=== PATIENT | female | born 1955 | race Hispanic/Latino ===

== ENCOUNTER 2020-01-14 13:39 | Emergency (ER) | payer SELFPAY ==
[~2020-01-14] VITALS: Ht 167.6 cm; Wt 95.3 kg
[~2020-01-14 13:39] MED LIST: AMLODIPINE BESYL5 MG PO; CETIRIZINE HCL10 MG PO; CITALOPRAM HBR20 MG PO; DEXILANT30 MG PO; DIFLUNISAL500 MG PO; LOSARTAN POTAS100 MG PO; METFORMIN HCL500 MG PO; MIRAPEX0.125 MG PO; NASONEX17 GM; SYMBICORT 16010.2 GM INH; TOPROL XL25 MG PO; TOPROL XL50 MG PO; VALIUM5 MG PO
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
--- OUTSIDE RECORDS SUMMARY | 2020-01-15 09:08 | XMS REPORT | Clinical Summary ---
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 Stated that she "gets asthma." [place] 03/05/2018 Medications End Date Status Medication Sig Dispensed Refills Start Date Active amLODIPine (NORVASC) 5 mg Take 5 mg by 0 tablet mouth every morning. Active cetirizine (ZyrTEC) 10 MG Take 10 mg by 0 tablet mouth every morning. Active glimepiride (AMARYL) 4 MG Take 4 mg by 0 tablet mouth every morning. Active levothyroxine (SYNTHROID, Take 25 mcg 0 LEVOXYL) 25 mcg tablet by mouth every morning. Active losartan (COZAAR) 100 MG Take 100 mg 0 tablet by mouth every morning. Active metFORMIN (GLUCOPHAGE) Take 1,000 mg 0 500 mg tablet by mouth 2 (two) times a day. Active metoprolol succinate XL Take 50 mg by 0 (TOPROL-XL) 50 mg 24 hr mouth every tablet morning. Active oxybutynin (DITROPAN) 5 Take 5 mg by 0 MG tablet mouth 3 (three) times a day. Active sertraline (ZOLOFT) 100 Take 100 mg 0 MG tablet by mouth nightly. Active pramipexole (MIRAPEX) Take 0.125 mg 0 0.125 MG tablet by mouth nightly. Active albuterol (ACCUNEB) 2.5 Take 2.5 mg 0 mg /3 mL (0.083 %) by nebulizer solution nebulization daily as needed for wheezing or shortness of breath. Active dexlansoprazole Take 30 mg by 0 (DEXILANT) 30 mg capsule mouth every morning. Active hydrOXYzine (ATARAX) 50 Take 50 mg by 0 MG tablet mouth nightly. Active fluticasone-vilanterol Inhale 1 30 each 0 (BREO ELLIPTA) 100-25 inhalations 8 mcg/dose blister with once daily device powder for for 30 days. inhalation Active Problems Problem Noted Date Chest pain 03/05/2018 Social History Date Tobacco Use Types Packs/Day Years Used Never Smoker Smokeless Tobacco: Never Used Drinks/Week oz/Week Comments Alcohol Use No Sex Assigned at Date Recorded Not on file Industry Job Start Date Occupation Not on file Not on file Not on file Travel End Travel History Travel Start No recent travel history available. 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
--- OUTSIDE RECORDS SUMMARY | 2020-01-15 09:08 | XMS REPORT | Clinical Summary ---
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 with hemoglobin A1c goal of less than 7.0% 06/26/2019 Refill [facility] Joshua Wray MD Hemorrhoids, unspecified hemorrhoid type (Primary Dx); Essential hypertension; Gastroesophageal reflux disease without esophagitis; Urge incontinence of urine; Generalized anxiety disorder; Depressive disorder; Sleep apnea, unspecified type; Leg cramping; Need for influenza vaccination 06/25/2019 Office Visit [facility] Marcelo Ramirez Jr., MD Uncontrolled type 2 diabetes mellitus wi thout complication, without long-term current use of insulin 06/25/2019 Refill [facility] Marcelo Ramirez Jr., MD Type 2 diabetes mellitus with hemoglobin A1c goal of less than 7.0% 06/25/2019 Refill [facility] Homero Arthur MD Intermittent asthma without complication , unspecified asthma severity 06/25/2019 Refill [facility] Christal Harris, RN 06/23/2019 Nurse Triage Reyes Rosenbaum DDS Encounter for screening for dental disor deng (Primary Dx) 06/09/2019 Office Visit Oral Surgery Marcelo Ramirez Jr., MD Allergic rhinitis, unspecified seasonali ty, unspecified trigger (Primary Dx); Encounter for screening for dental disorder 06/06/2019 Office Visit [facility] Marcelo Ramirez Jr., MD Type 2 diabetes mellitus with hemoglobin A1c goal of less than 7.0% (Primary Dx); Essential hypertension; Gastroesophageal reflux disease without esophagitis; Non-seasonal allergic rhinitis due to fungal spores; Generalized anxiety disorder; Depressive disorder; Hypothyroidism, unspecified type; Leg cramping; Encounter for diabetic foot exam; Tinnitus of both ears 05/29/2019 Office Visit [facility] Marcelo Ramirez Jr., MD Tinnitus of both ears 05/29/2019 Orders Only [facility] Joe Schwarz, MARCELINO 05/29/2019 Patient Patient Education Education Marcelo Ramirez Jr., MD Type 2 diabetes mellitus with hemoglobin A1c goal of less than 7.0% 05/29/2019 Refill [facility] Edward Tucker DDS [place], Phillip A, DDS Encounter for screening for dental disor deng (Primary Dx) 05/28/2019 Office Visit Oral Surgery Rocky Sneed, [facility] 05/28/2019 Clinical Pharmacy Marcelo Ramirez Jr., MD Essential hypertension 05/27/2019 Refill [facility] Edward Tucker DDS Encounter for screening for dental disor deng (Primary Dx) 05/23/2019 Office Visit Oral Surgery Edward Tucker DDS Encounter for screening for dental disor deng 05/23/2019 Office Visit Oral Surgery Edward Tucker DDS Encounter for screening for dental disor deng (Primary Dx) 05/23/2019 Orders Only Oral Surgery Marcelo Ramirez Jr., MD Varicose veins of both lower extremities , unspecified whether complicated (Primary Dx); Essential hypertension; Urge incontinence of urine; Uncontrolled type 2 diabetes mellitus without complication, without long-term current use of insulin; Hypothyroidism, unspecified type; Sleep apnea, unspecified type; Generalized anxiety disorder; Depressive disorder; Non-seasonal allergic rhinitis due to fungal spores; Gastroesophageal reflux disease without esophagitis; Weakness; Encounter for diabetes type 2 eye exam; Rash and other nonspecific skin eruption 04/03/2019 Office Visit [facility] Homero Arthur MD Intermittent asthma without complication , unspecified asthma severity 04/03/2019 Refill [facility] Reina Cabezas DDS Pain due to dental caries (Primary Dx); Chronic periodontitis; Tooth pain 03/27/2019 Office Visit Dentistry Homero Arthur MD Sleep apnea, unspecified type; Non-seasonal allergic rhinitis due to fungal spores 03/06/2019 Refill [facility] Marcelo Ramirez Jr., MD Essential hypertension 03/06/2019 Refill [facility] Homero Arthur MD Essential hypertension 01/29/2019 Refill [facility] Marcelo Ramirez Jr., MD Gastroesophageal reflux disease without esophagitis 01/27/2019 Refill [facility] Homero Arthur MD Essential hypertension 01/20/2019 Refill Family Practice after 01/13/2019 Immunizations Name Administration Dates Next Due Albuterol 0.083% (3ml) 07/20/2010 Influenza Vaccine 06/28/2016, 09/20/2015, (Deferred: Patient Refused), 06/23/2013 (Deferred: Patient Refused), 09/07/2011, 07/04/2010 (Defer red: Unavailable-Patient to return for vacci ne later) Influenza, 06/25/2019, 09/10/2018 Vaccine<FLUCELVAX>(Multi- Dose) Ipratropium 0.02t (2.5ml) 07/20/2010 Pneumoccoccal 09/07/2011 Pneumococcal 13-valent 12/04/2016 conj 0.5 mL injection Tdap Tetanus, diphtheria, 09/07/2011 acellular pertussis Vaccine Triamcinolone 40mg/ml Inj 11/24/2008, 11/19/2007 Family History Medical History Relation Name Comments Sickle Cell Daughter Cancer Father Asthma Grandchild Arthritis Mother Cancer Mother UTERUS Heart Mother Diabetes Sister Hypertension Sister Sickle Cell Sister Relation Name Status Comments Daughter Father cancer (Age 72) Grandchild Mother Alive Sister Sister Sister Social History Date Tobacco Use Types Packs/Day Years Used Never Smoker Smokeless Tobacco: Never Used Tobacco Cessation: Counseling Given: No Drinks/Week oz/Week Comments Alcohol Use No Food Insecurity Answer Date Recorded Within the past 12 months, you worried that your Sometimes true 04/02/2018 food would run out before you got money to buy more. Within the past 12 months, the food you bought Sometimes t rue 04/02/2018 just didn't last and you didn't have mo mery to get more. Sex Assigned at Date Recorded Not on file Industry Job Start Date Occupation Not on file Not on file Not on file Travel End Travel History Travel Start No recent travel history available. Date Recorded COVID-19 Exposure Response 01/09/2020 1:10 PM CDT In the last month, have you been in contact with No / Unsure someone who was confirmed or suspected to have Coronavirus / COVID-19? Last Filed Vital Signs Reading Time Taken Comments Vital Sign 122/68 01/09/2020 1:19 PM CDT Blood Pressure 98 01/09/2020 1:19 PM CDT Pulse 37.8 C (100 F) 01/09/2020 1:19 PM CDT Temperature 18 01/09/2020 1:19 PM CDT Respiratory Rate 100% 12/06/2019 11:50 AM CDT Oxygen Saturation - - Inhaled Oxygen Concentration 85.7 kg (189 lb) 01/09/2020 1:19 PM CDT Weight 165.1 cm (5' 5") 01/09/2020 1:19 PM CDT Height 31.45 01/09/2020 1:19 PM CDT Body Mass Index Plan of Treatment Care Team Description Date Type Specialty Marcelo Ramirez Jr., MD [address] [place] [address] [phone] 02/04/2020 Office Visit Dermatology referral#[id number]/FAP 02/26/2020 Office Visit Pulmonology Health Maintenance Due Date Last Done Comments DM Retinal Exam (Yearly) 04/03/2020 04/03/2019, 0 04/02/2018, 11/21/2016, Additional history exists DM Foot Exam (Yearly) 05/29/2020 05/29/2019, 02/24, 01/18/2017, Additional history exists DM Microalbumin Urine 08/25/2020 08/25/2019, 08/27, 11/21/2016, Scrn (Yearly) Additional history exists DM HGBA1C (Yearly) 09/04/2020 09/04/2019, 019, 09/25/2018, Additional history exists Breast Cancer Scrn 09/30/2020 09/30/2019, 019, 06/27/2017, (Yearly) Additional history exists Colonoscopy 5yr 01/09/2022 01/09/2017 Goals Goal Patient Associated Recent Progress Patient-Stat Aut hor Goal Type Problems ed? Weight < 200 lb (90.719 kg) Weight 85.7 kg (189 lb) No Jerson, (01/09/2020 1:19 PM MD Homero CDT) Note: Exercise to loss weight and improve life style Weight (lb) < 200 lb (90.7 kg) Weight 85.7 kg (189 lb) No Schofield, (01/09/2020 1:19 PM Caterina Farmer CDT) Procedures Comments Procedure Name Priority Date/Time Associated Diag nosis URINE CULTURE Routine 12/06/2019 Urinary tract i nfection 12:15 PM CDT with hematuria, site unspecified POC URINE DIPSTICK, Routine 12/06/2019 Fever, uns pecified WITHOUT MICRO 12:08 PM CDT Suprapubic abdomina l pain MAMMOGRAM BILAT SCREEN Routine 09/30/2019 Breast cancer screening DIGITAL 10:42 AM PROFESSOR OF RELIGION XRAY ANKLE 3 VIEW MIN Routine 09/30/2019 Sprain o f left ankle, 9:49 AM PROF[employer]OR [employer] RELIGION unspecified ligament, subsequent encounter BASIC METABOLIC PANEL Routine 09/30/2019 Diabetes mellitus type 2 9:17 AM [employer]OR [employer] REL[employer]ION without retinopathy XRAY FOOT 3 VIEWS MIN Routine 09/04/2019 Left kavon t pain 10:07 AM [employer] REL[employer]ION XRAY HIP BILATERAL 2 Routine 09/04/2019 Pain of r ight hip joint VIEWS AND AP PELVIS 10:07 AM PROFESSOR OF RELIGION XRAY ELBOW 2 VIEWS MIN Routine 09/04/2019 Left el bow pain 10:07 AM [employer] REL[employer]ION HEMOGLOBIN A1C Routine 09/04/2019 Diabetes mellit us with 9:23 AM [employer]OR [employer] REL[employer]ION hemoglobin A1c goal of 7.0%-8.0% LIPID PROFILE Routine 09/04/2019 Preventative he alth care 9:23 AM PROF[employer]OR OF RELIGION SYPHILIS SCREEN FOR Routine 08/25/2019 Genital le kendal, female INFECTION 4:14 PM [employer]OR [employer] REL[employer] HSV 1 AND 2-SPECIFIC AB, Routine 08/25/2019 Genit al lesion, female IGG W/ REFLEX 4:14 PM [employer] REL[employer] HEPATITIS PANEL Routine 08/25/2019 Genital lesion , female 4:14 PM [employer] HIV-1/HIV-2 ROUTINE Routine 08/25/2019 Genital le kendal, female SCREENING 4:14 PM [employer] MICROALBUMIN / CREATININE Routine 08/25/2019 Neph ropathy screen URINE RATIO 4:14 PM [employer] REL[employer]ION TRICHOMONAS VAGINALIS Routine 08/13/2019 Genital warts 2:34 PM [employer]ION Screen for STD (sexually transmitted disease) CHLAM/GC DNA AMPLI Routine 08/13/2019 Genital war ts 2:34 PM [employer]OR [employer] REL[employer]ION Screen for STD (sexually transmitted disease) POC URINE DIPSTICK, Routine 08/13/2019 Burning wi th urination WITHOUT MICRO 2:19 PM [employer]OR OF RELIGION HEMOGLOBIN A1C Routine 05/29/2019 Type 2 diabetes mellitus 1:04 PM CDT with hemoglobin A1c goal of less than 7.0% DIABETIC FOOT EXAM Routine 05/29/2019 Encounter f or diabetic 11:58 AM CDT foot exam GLUCOSE POC Routine 05/28/2019 8:22 AM CDT OPHTHALMOLOGY RETINAL Routine 04/03/2019 Encounte r for diabetes SCAN 1:48 PM CDT type 2 eye exam FREE T4 Routine 04/03/2019 Weakness 12:36 PM CDT THYROID STIMULATING Routine 04/03/2019 Weakness HORMONE (TSH) 12:36 PM CDT IRON PROFILE Routine 04/03/2019 Weakness 12:36 PM CDT after 01/13/2019 Results * Urine Culture (12/06/2019 12:15 PM CDT) Urine Culture >100,000 CFU/mL Escherichia [facility] coli (A) [facility] Urine Culture Urogenital yennifer [facility] Specimen Urine - Clean Catch [place] Antibiotic Method Susceptibility Organism Amikacin SENSITIVITY <=4 ug/mL: Susceptible Escherichia coli Ampicillin SENSITIVITY >16 ug/mL: Resistant Escherichia coli Ampicillin-Sulbactam SENSITIVITY 16/8 ug/mL: Intermediate Escherichia coli Cefazolin SENSITIVITY 2 ug/mL: Susceptible Escherichia coli Cefepime SENSITIVITY <=0.5 ug/mL: Susceptible Escherichia coli Ceftazidime SENSITIVITY <=0.5 ug/mL: Susceptible Escherichia coli Ceftriaxone SENSITIVITY <=0.5 ug/mL: Susceptible Escherichia coli Ciprofloxacin SENSITIVITY <=0.5 ug/mL: Susceptible Escherichia coli Ertapenem SENSITIVITY <=0.125 ug/mL: Susceptible Escherichia coli Gentamicin SENSITIVITY <=1 ug/mL: Susceptible Escherichia coli Meropenem SENSITIVITY <=0.125 ug/mL: Susceptible Escherichia coli Nitrofurantoin SENSITIVITY <=16 ug/mL: Susceptible Escherichia coli Piperacillin-Tazobactam SENSITIVITY <=2/4 ug/mL: Susceptible Escherichia coli Tobramycin SENSITIVITY 1 ug/mL: Susceptible Escherichia coli Trimethoprim-Sulfamethoxazole SENSITIVITY <=0.5/9.5 ug/mL: Susceptible Escherichia coli Performing Organization Address City/State/Zipcode Ph one Number [facility] [address] [place] [address] [phone] * POC URINE DIPSTICK, WITHOUT MICRO (12/06/2019 12:08 PM CDT) Only the most recent of 2 results within the time period is included. Color POC yellow - - - Clarity POC clear - - - Spec [place] 1.010 1.005 - 1.030 POC pH POC 5.5 5.0 - 7.0 Protein POC 1+ Neg - Neg Glucose POC 3+ Neg - Neg Ketone POC neg Neg - Neg Bilirubin POC neg Neg - Neg Nitrate POC neg Neg - Neg Urobilinogen 0.2 0.2 - 1.0 EU/dL POC Leukocyte POC trace Neg - Neg Blood POC 3+ Neg - Neg Specimen Urine * MAMMOGRAM BILAT SCREEN DIGITAL (09/30/2019 10:42 AM PROFESSOR OF RELIGION) Specimen Impressions Performed At IMPRESSION: BENIGN SMS There is no mammographic evidence of ma lignancy. A 1 year screening mammogram is recommended. I have reviewed the study and agree wit h the findings in the report. This document has been electronically s igned. Zahida Page M.D. aar,ddn/penrad:09/30/2019 11:12:47 Shredder Tender [place]: Ms. Kaylyn meraz RT(R)(M), [facility] letter sent: Benign Exam Mammogram BI-RADS: 2 Benign G0202 z1 2.31 Narrative Performed At #[id number] - MAMMOGRAM BILAT SCREEN DIGITAL SMS BILATERAL DIGITAL SCREENING MAMMOGRAM W ITH CAD: 09/30/2019 CLINICAL: Screening for malignancy. Comparison is made to exams dated: , 06/26/2017, 07/24/2016, 09/21/2014 [facility], and 04/24/2013 [facility]. There are scattered fibroglandular [place] ents in both breasts that could obscure a lesion on mammography. Current study was also evaluated with a Computer Aided Detection (CAD) system. There are benign vascular calcification s and calcifications in both breasts. No significant masses, calcifications, or other findings are seen in either breast. There has been no significant interval change. Procedure Note Interface, Rad/Mammog In - 09/30/2019 12:29 PM PROFESSOR OF RELIGION #[id number] - MAMMOGRAM BILAT SCREEN DIGITAL BILATERAL DIGITAL SCREENING MAMMOGRAM WITH CAD: 09/30/2019 CLINICAL: Screening for malignancy. Comparison is made to exams dated: 09/25/2018, 06/26/2017, 07/24/2016, 09/21/2014 [facility], and 04/24/2013 [facility]. There are scattered fibroglandular elements in both breasts that could obscure a lesion on mammography. Current study was also evaluated with a Computer Aided Detection (CAD) system. There are benign vascular calcifications and calcifications in both breasts. No significant masses, calcifications, or other findings are seen in either breast. There has been no significant interval change. IMPRESSION IMPRESSION: BENIGN There is no mammographic evidence of malignancy. A 1 year screening mammogram is recommended. I have reviewed the study and agree with the findings in the report. This document has been electronically signed. Zahida farley,ddn/florentin:09/30/2019 11:12:47 [place]: Ms. Kaylyn Shields RT(R)(M), [facility] letter sent: Benign Exam Mammogram BI-RADS: 2 Benign G0202 z12.31 Performing Organization Address City/State/[facility] Ph one Number SMS * XRAY ANKLE 3 VIEW MIN (09/30/2019 9:49 AM PROFESSOR OF RELIGION) Specimen Impressions Performed At IMPRESSION: SMS 1. No acute radiographic abnormality. 2. Small calcaneus osteophyte on the plantar aspect, which may be related to focal pain. If the report is "FINALIZED" it indicat es that the attending/staff radiologist has reviewed the images and agrees with the resident's interpretation. Dictated By: Jeff Rivera MD, 09/30/2019 11 :13 AM I have reviewed the study and agree wit h the findings in this report. Signed By: Carloz Hurtado MD, 09/30/2019 11: 35 AM Narrative Performed At X-ray left ankle - 3 view(s) SMS HISTORY: left ankle sprain 6 week ago COMPARISON: Left ankle radiograph on DISCUSSION: Bone: No acute displaced fracture. No aggressive osseous lesion. Small calcaneus osteophyte on the plant ar aspect. Joints: The joint spaces are well-maintained. No dislocation. Soft tissues: Appear unremarkable. Procedure Note Interface, Rad/Mammog In - 09/30/2019 11:40 AM PROFESSOR OF RELIGION X-ray left ankle - 3 view(s) HISTORY: left ankle sprain 6 week ago COMPARISON: Left ankle radiograph on 05/09/2013 DISCUSSION: Bone: No acute displaced fracture. No aggressive osseous lesion. Small calcaneus osteophyte on the plantar aspect. Joints: The joint spaces are well-maintained. No dislocation. Soft tissues: Appear unremarkable. IMPRESSION IMPRESSION: 1. No acute radiographic abnormality. 2. Small calcaneus osteophyte on the pl wes aspect, which may be related to focal pain. If the report is "FINALIZED" it indicates that the attending/staff radiologist has reviewed the images and agrees with the resident's interpretation. Dictated By: Jeff Rivera MD, 09/30/2019 11:13 AM I have reviewed the study and agree with the findings in this report. Signed By: Carloz Hurtado MD, 09/30/2019 11:35 AM Performing Organization Address [facility] one Number [facility] * Basic Metabolic Panel (09/30/2019 9:17 AM PROFESSOR OF RELIGION) Sodium 134 (L) 136 - 145 mmol/L [facility] Potassium 4.4 3.5 - 5.1 mmol/L [facility] Chloride 96 (L) 98 - 107 mmol/L [facility] CO2 28 21 - 31 mmol/L [facility] Urea Nitrogen 11.0 7.0 - 25.0 mg/dL [facility] Creatinine 0.7 0.6 - 1.2 mg/dL [facility] Glucose 434 (HH) 70 - 110 mg/dL [facility] Calcium 9.0 8.6 - 10.3 mg/dL [facility] GFR, Estimated 85 (L) >=90 mL/min/1.73 m2 [facility] Anion Gap 10 5 - 16 mmol/L [facility] Specimen Blood Performing Organization Address [facility] one Number [facility] [address] [place] [address] * XRAY HIP BILATERAL 2 VIEWS AND AP PELVIS (09/04/2019 10:07 AM PROFESSOR OF RELIGION) Specimen Impressions Performed At IMPRESSION: [facility] No acute osseous lesion. Mild right SI and femoroacetabular dege nerative changes. Dictated By: Any Ulloa MD, 2019 10:05 AM I have reviewed the study and agree wit h the findings in this report. Signed By: Carloz Hurtado MD, 09/04/2019 10: 09 AM Narrative Performed At BILATERAL HIP RADIOGRAPHS - Views [facility] INDICATION: Right sacral pain COMPARISON: Hip radiographs 06/27/2017 DISCUSSION: No displaced fracture or malalignment i s identified. Mild SI joint space narrowing and scler osis. Mild right femoral acetabular joint spa ce narrowing and subchondral sclerosis. The osseous structures are partially ob scured by stool and overlying bowel gas. Procedure Note Interface, Garret/Mammog In - 09/04/2019 10:14 AM PROFESSOR OF RELIGION BILATERAL HIP RADIOGRAPHS - Views INDICATION: Right sacral pain COMPARISON: Hip radiographs 06/27/2017 DISCUSSION: No displaced fracture or malalignment is identified. Mild SI joint space narrowing and sclerosis. Mild right femoral acetabular joint space narrowing and subchondral sclerosis. The osseous structures are partially obscured by stool and overlying bowel gas. IMPRESSION IMPRESSION: No acute osseous lesion. Mild right SI and femoroacetabular degenerative changes. Dictated By: Any Ulloa MD, 09/04/2019 10:05 AM I have reviewed the study and agree with the findings in this report. Signed By: Carloz Hurtado MD, 09/04/2019 10:09 AM Performing Organization Address City/State/[facility] Ph one Number SMS * XRAY FOOT 3 VIEWS MIN (09/04/2019 10:07 AM PROFESSOR OF RELIGION) Specimen Impressions Performed At IMPRESSION: SMS 1. No acute osseous lesion. 2. Unchanged small plantar calcaneal enthesophyte. Dictated By: Any Ulloa MD, 2019 10:07 AM I have reviewed the study and agree wit h the findings in this report. Signed By: Carloz Hurtado MD, 09/04/2019 10: 10 AM Narrative Performed At RIGHT FOOT RADIOGRAPHS [facility] COMPARISON: Right foot radiograph 2006 INDICATION: lateral foot pain along 5th metatarsal base DISCUSSION: No displaced fracture or malalignment i s identified. Unchanged small plantar calcaneal enthe sophyte. The joint spaces are well maintained an d there is no definite osseous erosion. Procedure Note Garret Martin/Anog In - 09/04/2019 10:15 AM PROFESSOR OF RELIGION RIGHT FOOT RADIOGRAPHS COMPARISON: Right foot radiograph 03/06/2007 INDICATION: lateral foot pain along 5th metatarsal base DISCUSSION: No displaced fracture or malalignment is identified. Unchanged small plantar calcaneal enthesophyte. The joint spaces are well maintained and there is no definite osseous erosion. IMPRESSION IMPRESSION: 1. No acute osseous lesion. 2. Unchanged small plantar calcaneal en thesophyte. Dictated By: Any Ulloa MD, 09/04/2019 10:07 AM I have reviewed the study and agree with the findings in this report. Signed By: Carloz Hurtado MD, 09/04/2019 10:10 AM Performing Organization Address [facility] one Number SMS * XRAY ELBOW 2 VIEWS MIN (09/04/2019 10:07 AM PROFESSOR OF RELIGION) Specimen Impressions Performed At IMPRESSION: [facility] Scattered degenerative change. No osseo us erosion. Dictated By: Any Ulloa MD, 2019 10:11 AM I have reviewed the study and agree wit h the findings in this report. Signed By: Carloz Hurtado MD, 09/04/2019 10: 12 AM Narrative Performed At Left elbow radiograph - views SMS HISTORY: L elbow pain x 1 week COMPARISON: None DISCUSSION: Bone: No acute displaced fracture. Scattered degenerative change. No osseo us erosion Joints: The joint spaces are well-maintained. Soft tissues: The soft tissues appear unremarkable. Procedure Note Interface, Rad/Mammog In - 09/04/2019 10:17 AM PROFESSOR OF RELIGION Left elbow radiograph - views HISTORY: L elbow pain x 1 week COMPARISON: None DISCUSSION: Bone: No acute displaced fracture. Scattered degenerative change. No osseous erosion Joints: The joint spaces are well-maintained. Soft tissues: The soft tissues appear unremarkable. IMPRESSION IMPRESSION: Scattered degenerative change. No osseous erosion. Dictated By: Any Ulloa MD, 09/04/2019 10:11 AM I have reviewed the study and agree with the findings in this report. Signed By: Carloz Hurtado MD, 09/04/2019 10:12 AM Performing Organization Address [facility] one Number SMS * Hemoglobin A1C (09/04/2019 9:23 AM PROFESSOR OF RELIGION) Only the most recent of 2 results within the time period is included. Hemoglobin A1c 10.9 (H) 4.3 - 6.1 % [facility] Estimated 266 (H) 70 - 110 mg/dL [facility] Average Glucose LABOR[facility]ORY Specimen Blood Performing Organization Address [facility] one Number [facility] [address] [place] [address] [phone] * Lipid Profile (09/04/2019 9:23 AM PROFESSOR OF RELIGION) [facility] Cholesterol 158.0 <=200.0 mg/dL [facility] Triglyceride 116 <150 mg/dL [facility] HDL 48.0 See Reference Range [facility] Narrative. mg/dL [facility] LDL 87 <100 mg/dL [facility] Comment: [facility] Optimal: < 100.0 mg/dL Near Optimal: 120-129 mg/dL Borderline: 130-159 mg/dL High: 160-189 mg/dL Very High: >=190 mg/dL Patient Yes [facility] Fasting? LABORAT[facility] Specimen Blood Performing Organization Address [facility] Ph one Number [facility] [address] [place] [address] * Syphilis Screen for Infection (08/25/2019 4:14 PM PROFESSOR OF RELIGION) [facility] TPA Negative Negative, Equivocal [facility] Final Report Negative Negative [facility] Specimen Blood Performing Organization Address [facility] one Number [facility] [address] [place] [address] [phone] * HSV 1 & 2-Specific Ab, IgG w/Reflex to Supplemental HSV-2 Testing (08/25/2019 4:14 PM PROFESSOR OF RELIGION) [facility] HSV 1 IgG, Type 41.10 (>) 0.00 - 0.90 index [facility] Spec Comment: Negative <0.91 Equivocal 0.91 - 1.09 Positive >1.09 Note: Negative indicates no antibodies detected to HSV-1. Equivocal may suggest early infection. If clinically appropriate, retest at later date. Positive indicates antibodies detected to HSV-1. HSV 2 IgG 21.80 (>) 0.00 - 0.90 index BT [facility] Comment: Negative <0.91 Equivocal 0.91 - 1.09 Positive >1.09 Note: Negative indicates no antibodies detected to HSV-2. Equivocal may suggest early infection. If clinically appropriate, retest at later date. Positive indicates antibodies detected to HSV-2. Specimen Blood Narrative Performed At Performed at: 01 - [facility] [address] [place] [id number] Top Stitcher: Lew Petersen MD, Phone : [phone] Performing Organization Address [facility] one Number BT [facility] [address] [place] [address] * HIV-1/HIV-2 Routine Screening (08/25/2019 4:14 PM PROFESSOR OF RELIGION) Pathologist [facility] HIV-1/HIV-2 Negative Negative [facility] Specimen Blood Performing Organization Address [facility] one Number [facility] [address] [place] [address] * Microalbumin / Creatinine Urine Ratio (08/25/2019 4:14 PM PROFESSOR OF RELIGION) [facility] Microalbumin, 0.8 <30.0 mg/dL [facility] Random [facility] Creatinine, 140 20 - 320 mg/dL [facility] Urine [facility] Urine 5.7 0.0 - 30.0 mg/g [facility] Microalbumin [facility] Specimen Urine - Voided, urine Performing Organization Address [facility] one Number [facility] [address] [place] [address] * Hepatitis Panel (08/25/2019 4:14 PM PROFESSOR OF RELIGION) [facility] Hep C Vir Ab Negative Negative [facility] IgG [facility] Hep B Surface Negative Negative [facility] Ag [facility] Hep A Vir Ab Negative Negative [facility] IgM [facility] Hep B Core Ab Negative Negative [facility] IgM [facility] Specimen Blood Performing Organization Address [facility] one Number [facility] [address] [place] [address] [phone] * Trichomonas vaginalis (08/13/2019 2:34 PM PROFESSOR OF RELIGION) [facility] Trich Vaginalis Negative Negative [facility] Specimen Urine - Voided, urine Narrative Performed At Disclaimer: This test utilizes FDA kai red APTIMA Trichomanas vaginalis Assay by [facility] TMA from [facility] for qual itative nucleic acid amplification test (NAAT) for the detection of ribosome RN A (rRNA) from Trichomonas vaginalis. Performing Organization Address [facility] one Number [facility] [address] [place] [address] [phone] * Chlam/GC DNA Amplification (08/13/2019 2:34 PM PROFESSOR OF RELIGION) [facility] Chlamydia Negative Negative [facility] trachomatis [facility] N. gonorrhoeae Negative Negative [facility] Specimen Urine - Voided, urine Narrative Performed At This test utilizes myGreek Aptima Combo 2 Assay for target amplification of rRNA [facility] for the qualitative detection of Chlamy tereso trachomatis and Neisseria gonorrhoeae. Performing Organization Address [facility] one Number [facility] [address] [place] [address] * DIABETIC FOOT EXAM (05/29/2019 11:58 AM CDT) Narrative Performed At Marcelo Ramirez Jr., MD 05/30/2019 1:40 PM Diabetic Foot Exam was performed at 05/29/2019 12:21 PM. Right foot sensation is normal, right foot pulses are normal, right foot appearance is abnormal. Left foot sensation is n ormal, left foot pulses are normal, left foot appearance is abnormal. * POCT GLUCOSE POC docked device (05/28/2019 8:22 AM CDT) Glucose POC 206 (H) 74 - 106 mg/dL [facility] Specimen Blood Performing Organization Address [facility] one Number [facility] [place] [address] [facility] [address] [place] [address] * OPHTHALMOLOGY RETINAL SCAN (04/03/2019 1:48 PM CDT) RETINAL NORMAL [facility] SCAN-FINAL RESULT Right Diabetic None [facility] Retinopathy Right Macular None [facility] Edema Right Other None [facility] Suspected Conditions Right Image Gradeable Image [facility] Quality Left Diabetic None [facility] Retinopathy Left Macular None [facility] Edema Left Other None [facility] Suspected Conditions Left Image Gradeable Image IRIS Quality Specimen Narrative Performed At Retinal Study Result for FRANCISCO NEFF IRIS FRANCISCO NEFF a 63 y/o, F (: [birth year] ) presented to [facility] on 04-03-2019 for a retinal imaging study of the left and r ight eyes. Based on the findings of the study, the following is recommended for FRANCISCO NEFF Normal Scan: Please advise the patient to return for another scan in 1 year. Interpreting Provider's Comments: No comments provided Right Eye Findings: Normal Result. Negative for Diabetic Retinopathy. Left Eye Findings: Normal Result. Negative for Diabetic Retinopathy. This result was electronically signed Pee Gonzalez MD, , Taxonomy: [id number] on 04-03-2019 07:4 6:37 [facility] time. NOTE: Any pathology noted on this tereso betic retinal evaluation should be confirmed by an appropriate ophthalmic examination. Performing Organization Address [facility] one Number IRIS * TSH [Thyroid Stimulating Hormone] (04/03/2019 12:36 PM CDT) TSH 2.25 0.57 - 3.74 uIU/mL [facility] Comment: [facility]OR[facility] If , please see the following reference ranges (not verified by lab): 1st Trimester: 0.05 -3.70 uIU/mL 2nd Trimester: 0.31 -4.35 uIU/mL 3rd Trimester: 0.41 - 5.18 uIU/mL Specimen Blood Performing Organization Address [facility] one Number [facility] [address] [place] [address] [phone] * Free T4 (04/03/2019 12:36 PM CDT) Free T4 0.82 0.61 - 1.18 ng/dl [facility] Specimen Blood Performing Organization Address [facility] one Number [facility] [address] [place] [address] [phone] * Iron Profile (04/03/2019 12:36 PM CDT) Iron 46 (L) 50 - 212 ug/dL [facility] TIBC 379 250 - 450 ug/dL [facility] % Iron Sat 12 % [facility] Transferrin 270.38 203.00 - 362.00 [facility] mg/dL [facility] Specimen Blood Performing Organization Address [facility] one Number [facility] [address] [place] [address] after 01/13/2019 Insurance Type Payer Benefit Subscriber ID Effective Phone Address Plan / Dates Group [place] [employer] [place] xxxxx 2019-9 [address] /[id number] PLANNING [place], [place] [phone] [facility] PL[facility] FINANCIAL xxxxx 2019-9 [address] [facility] /11/2019 [place] [address]
--- OUTSIDE RECORDS SUMMARY | 2020-01-15 09:09 | XMS REPORT ---
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 Vir Ab IgG (test code = 37682-2) Negative Negative Hep B Surface Ag (test code = 5196-1) Negative Negative Hep A Vir Ab IgM (test code = 07183-1) Negative Negative Hep B Core Ab IgM (test code = 73061-8) Negative Negative Lab Interpretation (test code = 26027-3) [facility] [id number] 08:12:00* Test Item Value Reference Range Interpretation Comments TPA (test code = 32622-3) Negative Negative, Equivocal Final Report (test code = 62860-8) Negative Negative Lab Interpretation (test code = 17675-6) [facility]-2 Routine [id number] 08:11:00* Test Item Value Reference Range Interpretation Comments HIV-1/HIV-2 (test code = 67698-9) Negative Negative Lab Interpretation (test code = 59311-1) [facility] / Creatinine Urine [id number] 20:22:00* Test Item Value Reference Range Interpretation Comments Microalbumin, Random (test code = 86926423) 0.8 mg/dL <30.0 Creatinine, Urine (test code = 44701972) 140 mg/dL 20-320 Urine Microalbumin (test code = 01292832) 5.7 mg/g 0-30 Lab Interpretation (test code = 75071-8) Normal [facility] HospitalTrichomonas [id number] 19:10:00* Test Item Value Reference Range Interpretation Comments Trich Vaginalis (test code = 99398493) Negative Negative SHELLEY (test code = SHELLEY) Disclaimer: This test utiliz es FDA cleared APTIMA Trichomanas vaginalis Assay by T[employer] from [employer] for qualitative nucleic acid amplification test (NAAT) for the detection of ribosome RNA (rRNA) from Trichomonas vaginalis. Lab Interpretation (test code = 95617-3) Normal [facility] HospitalChlam/GC DNA [id number] 02:19:00* Test Item Value Reference Range Interpretation Comments Chlamydia trachomatis (test code = 62847-1) Negative Negative N. gonorrhoeae (test code = 50582-8) Negative Negative SHELLEY (test code = SHELLEY) This test utilizes [employer] A ptima Combo 2 Assay for target amplification of rRNA for the qualitative detection of Chlamydia trachomatis and Neisseria gonorrhoeae. Lab Interpretation (test code = 80658-1) [facility] [id number] 11:58:15Marcelo Ramirez Jr., MD 05/30/2019 1:40 PMDiabetic Foot Exam was performed at 05/29/2019 12:21 PM. Right foot sensation is normal, right foot pulses are normal, right foot appearance is abnormal. Left foot sensation is normal, left foot pulses are normal, left foot appearance is abnormal. [facility] GLUCOSE POC docked device 2019-05-28 08:28:00* Test Item Value Reference Range Interpretation Comments Glucose POC (test code = 67060270) 206 mg/dL 74-106 H Lab Interpretation (test code = 26890-2) Abnormal [facility] [Thyroid Stimulating Hormone]2019-04-04 07:02:00* Test Item Value Reference Range Interpretation Comments TSH (test code = 61111381) 2.25 0.57- 3.74 uIU/mL If , please see the following reference ranges (not verified by lab): 1st Trimester: 0.05 -3.70 uIU/mL2nd Trimester: 0.31 -4.35 uIU/mL3rd Trimester: 0.41 - 5.18 uIU/mL Lab Interpretation (test code = 48068-7) Normal [facility] [id number] 06:58:00* Test Item Value Reference Range Interpretation Comments Free T4 (test code = 83080435) 0.82 ng/dl 0.61-1.18 Lab Interpretation (test code = 23427-1) Normal [facility] [id number] 06:44:00* Test Item Value Reference Range Interpretation Comments Iron (test code = 28557955) 46 ug/dL 50-212 L TIBC (test code = 74167088) 379 ug/dL 250-450 % Iron Sat (test code = 28178895) 12 % Transferrin (test code = 78587310) 270.38 mg/dL 203-362 Lab Interpretation (test code = 62161-4) [facility]
== END 2020-01-14 16:50 | disposition home or self-care (01) ==
LOC: ER 13:39
DX: S16.1XXA Strain of muscle, fascia and tendon at neck level, initial encounter (principal); R51 Headache; V43.52XA Car driver injured in collision with other type car in traffic accident, initial encounter; Y92.488 Other paved roadways as the place of occurrence of the external cause; I10 Essential (primary) hypertension; E11.9 Type 2 diabetes mellitus without complications; J45.909 Unspecified asthma, uncomplicated; F41.9 Anxiety disorder, unspecified
CPT/HCPCS: 70450; 72125; 99282